=== PATIENT | female | born 1995 | race Caucasian/White ===

== ENCOUNTER 2019-01-25 20:34 | Emergency (ER) | payer OTHER ==
--- NOTE | 2019-01-25 21:30 | ER Document Report ---
ED Medical Screen (RME) - General Chief Complaint: Abdominal Cramping Stated Complaint: ABDOMINAL CRAMPING Time Seen by Provider: 01/25/19 21:26 Mode of Arrival: Ambulatory Information source: Patient Notes: 31-year-old female presented to ED for complaint of pelvic pain. She states she had an IUD inserted yesterday and she had a severe sharp pain this evening. She states it does come and go. She states she was told that it will hurt but this pain was so severe that brought her to her knees. She is alert oriented respirations regular and unlabored speaking in full sentences. She does have a history of asthma and rotator cuff repair. She does not smoke drink or use any drugs. She does live with her . She states [facility] is her primary care I have greeted and performed a rapid initial assessment of this patient. A comprehensive ED assessment and evaluation of the patient, analysis of test results and completion of medical decision making process will be conducted by an additional ED providers. Physical Exam - Vital signs Vitals: Temp Pulse Resp BP Pulse Ox 98.3 F 71 16 141/84 H 100 01/25/19 20:51 01/25/19 20:51 01/25/19 20:51 01/25/19 20:51 01/25/19 20:51 Course - Vital Signs Vital signs: Temp Pulse Resp BP Pulse Ox 98.3 F 71 16 141/84 H 100 01/25/19 20:51 01/25/19 20:51 01/25/19 20:51 01/25/19 20:51 01/25/19 20:51
--- NOTE | 2019-01-25 23:08 | RADIOLOGY REPORT (SQ) ---
US PELVIS EXAM DATE: 01/25/2019 9:31 PM CDT HISTORY: Pelvic pain. COMPARISON: None. TECHNIQUE: Grayscale, color Doppler, and spectral Doppler ultrasound images of the pelvis were obtained. FINDINGS: The uterus is anteverted and measures 7.6 x 3.6 x 4.1 cm. The endometrium is 4 mm in thickness with an intrauterine device in appropriate position. The cervix measures 3 cm in length. Both ovaries are normal in size and contain normal follicles along with normal color Doppler blood flow. No pelvic free fluid is seen. IMPRESSION: 1. Normal study. 2. Intrauterine device in appropriate position.
[2019-01-25 23:54] LABS: ABSOLUTE EOSINOPHILS # (AUTO) 0.7 10^3/uL (0.0-0.6); ABSOLUTE LYMPHOCYTES (AUTO) 2.8 10^3/uL (0.5-4.7); ABSOLUTE MONOCYTES (AUTO) 0.5 10^3/uL (0.1-1.4); BASOPHILS % (AUTO) 0.7 % (0-2); EOSINOPHILS % (AUTO) 9.7 % (0-6); HEMATOCRIT 33.3 % (36.0-47.0); HEMOGLOBIN 11.2 g/dL (12.0-15.5); LYMPHOCYTES % (AUTO) 39.4 % (13-45); MEAN CORPUSCULAR HEMOGLOBIN 26.9 pg (27.0-33.4); MEAN CORPUSCULAR HGB CONC 33.5 g/dL (32.0-36.0); MEAN CORPUSCULAR VOLUME 80 fl (80-97); MONOCYTES % (AUTO) 7.5 % (3-13); PLATELET COUNT 210 10^3/uL (150-450); RED BLOOD COUNT 4.15 10^6/uL (3.72-5.28); RED CELL DISTRIBUTION WIDTH 14.8 % (11.5-14.0); SEGMENTED NEUTROPHILS % (AUTO) 42.7 % (42-78); TOTAL CELLS COUNTED % (AUTO) 100 %
[2019-01-25 23:56] LABS: APPEARANCE,URINE SLIGHTLY-CLOUDY; BILIRUBIN,URINE NEGATIVE (NEGATIVE); COLOR,URINE YELLOW; GLUCOSE, URINE NEGATIVE (NEGATIVE); KETONES,URINE NEGATIVE (NEGATIVE); LEUKOCYTE ESTERASE,URINE TRACE (NEGATIVE); NITRITE,URINE NEGATIVE (NEGATIVE); PROTEIN,URINE NEGATIVE (NEGATIVE); URINE SPECIFIC GRAVITY 1.025; UROBILINOGEN,URINE NEGATIVE mg/dL (<2.0)
[2019-01-26 00:14] LABS: ALBUMIN 4.1 g/dL (3.5-5.0); ALKALINE PHOSPHATASE 50 U/L (38-126); ANION GAP 7 (5-19); ASPARTATE AMINO TRANSFERASE 15 U/L (14-36); BILIRUBIN,DIRECT 0.2 mg/dL (0.0-0.4); BILIRUBIN,TOTAL 0.4 mg/dL (0.2-1.3); BLOOD UREA NITROGEN 12 mg/dL (7-20); CALCIUM 9.1 mg/dL (8.4-10.2); CARBON DIOXIDE 26 mmol/L (22-30); CHLORIDE 106 mmol/L (98-107); GLUCOSE 93 mg/dL (75-110); POTASSIUM 4.1 mmol/L (3.6-5.0)
[2019-01-26 00:44] VITALS: BP 113/71
--- NOTE | 2019-01-26 01:12 | ER Document Report ---
Entered by JASWINDER HUNTER SCRIBE 01/25/19 [id number] Acting as scribe for:YECENIA PFEIFFER DO ED GI/ - General Chief Complaint: Vaginal Pain Stated Complaint: ABDOMINAL CRAMPING Time Seen by Provider: 01/25/19 21:26 Mode of Arrival: Ambulatory Information source: Patient Notes: Patient is a 23 year old female that presents to the ED today with complaints of pelvic pain. Patient states she had an IUD placed yesterday and has had pain ever since. Patient denies any recent intercourse. Patient states she has had some nausea with the pain but denies vomiting or vaginal discharge. TRAVEL OUTSIDE OF THE [place] IN LAST 30 DAYS: No - Related Data Allergies/Adverse Reactions: shellfish derived Allergy (Severe, Verified 01/25/19 21:30) Past Medical History - General Information source: Patient - Social History Smoking Status: Never Smoker Cigarette use (# per day): No Chew tobacco use (# tins/day): No Frequency of alcohol use: None Drug Abuse: None Family History: Reviewed & Not Pertinent Patient has suicidal ideation: No Patient has homicidal ideation: No Review of Systems - Review of Systems Constitutional: No symptoms reported EENT: No symptoms reported Cardiovascular: No symptoms reported Respiratory: No symptoms reported Gastrointestinal: No symptoms reported Genitourinary: No symptoms reported Female Genitourinary: See HPI, Other - pain after IUD placement Musculoskeletal: No symptoms reported Skin: No symptoms reported Hematologic/Lymphatic: No symptoms reported Neurological/Psychological: No symptoms reported -: Yes All other systems reviewed and negative Physical Exam - Vital signs Vitals: Temp Pulse Resp BP Pulse Ox 98.3 F 71 16 141/84 H 100 01/25/19 20:51 01/25/19 20:51 01/25/19 20:51 01/25/19 20:51 01/25/19 20:51 Interpretation: Normal - General General appearance: Appears well, Alert - HEENT Head: Normocephalic, Atraumatic Eyes: Normal Pupils: PERRL - Respiratory Respiratory status: No respiratory distress Chest status: Nontender Breath sounds: Normal Chest palpation: Normal - Cardiovascular Rhythm: Regular Heart sounds: Normal auscultation Murmur: No - Abdominal Inspection: Normal Distension: No distension Bowel sounds: Normal Tenderness: Nontender Organomegaly: No organomegaly - Back Back: Normal, Nontender - Extremities General upper extremity: Normal inspection, Nontender, Normal color, Normal ROM, Normal temperature General lower extremity: Normal inspection, Nontender, Normal color, Normal ROM, Normal temperature, Normal weight bearing. No: Zee's sign - Neurological Neuro grossly intact: Yes Cognition: Normal Orientation: AAOx4 [place] Coma Scale Eye Opening: Spontaneous Vane Coma Scale Verbal: Oriented [place] Coma Scale Motor: Obeys Commands [place] Coma Scale Total: 15 Speech: Normal Motor strength normal: LUE, RUE, LLE, RLE Sensory: Normal - Psychological Associated symptoms: Normal affect, Normal mood - Skin Skin Temperature: Warm Skin Moisture: Dry Skin Color: Normal Course - Re-evaluation Re-evalutation: 01/26/19 Patient is a 23-year-old female who recently had an IUD placed. Patient has been having intermittent pelvic cramping although it is improved from before. No recent intercourse. Noted vaginal discharge. Patient is not . IUD is in good position. She is to follow-up with her COURT [facility] Monday if she continues to have symptoms and would like it removed. Understands and agrees with plan. Stable for discharge. - Vital Signs Vital signs: Temp Pulse Resp BP Pulse Ox 98.3 F 60 14 113/71 100 01/26/19 00:39 01/26/19 00:39 01/26/19 00:39 01/26/19 00:39 01/26/19 00:39 - Laboratory Result Diagrams: 01/25/19 23:25 01/25/19 23:25 Laboratory results interpreted by me: 01/25/19 01/25/19 23:22 23:25 Hgb 11.2 L Hct 33.3 L MCH 26.9 L RDW 14.8 H Eos % (Auto) 9.7 H Absolute Eos (auto) 0.7 H Urine Blood LARGE H Ur Leukocyte Esterase TRACE H - Diagnostic Test Radiology reviewed: Reports reviewed Discharge - Discharge Clinical Impression: IUD check up Condition: Stable Disposition: HOME, SELF-CARE Additional Instructions: Please talk to your COURT ADVOC[facility] or the person who placed your IUD if you continue to have pain and cramping. You may take Tylenol, ibuprofen or naproxen [id number] as needed for pain. Forms: Return to Work I personally performed the services described in the documentation, reviewed and edited the documentation which was dictated to the scribe in my presence, and it accurately records my words and actions.
== END 2019-01-26 00:39 | disposition home or self-care (01) ==
LOC: ER 20:34
DX: T83.84XA Pain due to genitourinary prosthetic devices, implants and grafts, initial encounter (principal); R10.2 Pelvic and perineal pain; Z98.890 Other specified postprocedural states
CPT/HCPCS: 36415; 76830; 80053; 81001; 84703; 85025